=== PATIENT | female | born 1970 ===

== ENCOUNTER → 2016-06-12 | Outpatient (CLI) | payer OTHER ==
--- NOTE | 2016-06-12 16:07 | MR ---
MRI Lower Extremity, Left Knee History: Left knee pain. Continued pain after initially evaluated four weeks ago. Not comfortable wit h weight-bearing. Technique: MRI is performed of the left knee using a [employer] MRI system. Sagittal, coronal, and axial imaging was obtained with standard imaging sequences. Findings General: There is a mild suprapatellar joint effusion. Khoury cyst is seen extending craniocaudally 3. 5 cm. No evidence for bone contusion or occult fracture. Ligaments and Tendons: There is attenuation of the proximal anterior cruciate ligament which appears to be scarred to the posterior cruciate ligament. Posterior cruciate ligament is intact. Medial colla teral ligament is intact. There is mild edema along the pes anserinus. Iliotibial band, fibular colla teral ligament, and biceps femoris are unremarkable. Popliteus muscle and tendon are intact. Menisci and Cartilage: There is evidence of tear and attenuation in the posterior horn medial meniscu s at the meniscal root. A displaced meniscal fragment is seen superior to the meniscal root measuring 7 mm. Horizontal signal abnormality is seen in the posterior horn and body of the medial meniscus po ssibly extending into the inferior articular surface near the posteromedial periphery. There is also a small radial tear at the free edge. The body is extruded medially. No significant cartilage attenua tion in the medial compartment. No evidence for lateral meniscal tear. No significant cartilage signal abnormality or attenuation in the lateral compartment. Extensor Mechanism: Mild cartilage signal abnormality is seen in the patella and trochlear groove. Th ere is mild thinning in mid trochlear groove and minimal thinning in the patella. Quadriceps tendon a nd patellar tendon are unremarkable. Impressions 1. 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 2. Complex tear of posterior horn and body of the medial meniscus including significant attenuation t oward the meniscal root and a displaced meniscal fragment superior to the meniscal root. 3. 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 4. Mild suprapatellar joint effusion. Khoury cyst. 5. Mild strain distal pes anserinus.
== END ==
LOC: FIMAGING 10:08
PROVIDERS: ATTEND Internal Medicine
DX: S83.512A Sprain of anterior cruciate ligament of left knee, initial encounter (principal); S83.242A Other tear of medial meniscus, current injury, left knee, initial encounter; M22.42 Chondromalacia patellae, left knee; M25.462 Effusion, left knee; M71.22 Synovial cyst of popliteal space [Baker], left knee; X58.XXXA Exposure to other specified factors, initial encounter